=== PATIENT | female | born 1945 | race Caucasian/White ===

== ENCOUNTER → 2017-06-17 | Outpatient (CLI) | payer MEDICARE, MEDICAID | END | disposition home or self-care (01) | LOC: MAMMO 12:43 | DX: Z12.31 Encounter for screening mammogram for malignant neoplasm of breast (principal) ==

== ENCOUNTER 2018-04-28 16:39 | Inpatient (IN) | payer MEDICARE, MEDICAID ==
[~2018-04-28] VITALS: Ht 167.6 cm; Wt 82.2 kg
--- NOTE | ~2018-04-28 | PR ---
[place], [place] PROGRESS NOTE NAME: INCKY LUDWIG [facility] #: [id number] UNIT #: [id number] ROOM: 502 DOCTOR: TERESA MOREJONDONN BIRTHDATE: [birth year] DOS: 04/30/2018 HISTORY OF PRESENT ILLNESS: A 72-year-old with some mental compromise, has presented with cross abdominal pain and was found to have elevation of pancreatic enzymes. She cannot contribute much in detail about her problems. White blood cell was 9; however, H and H of 15 and 43, differential neutrophil was slightly elevated, lactic acid normal. INR 1.2. Chest x-ray did not show any acute pathology of concern. BUN and creatinine 40 and 1.9. Electrolytes, borderline hyponatremia, normochloremic; however, GOT and GPT is 59 and 161, lipase of an 800+. C-reactive protein was 23. BNP of 150. Urinalysis was 4+ bacterial positive. CT scan of the abdomen demonstrate bilateral atelectasis of the lung, liver, hepatic steatosis, mild in degree. No evidence of pleural or pericardial pathology effusion. The inflammatory change extends caudal to the retroperitoneum along the anterior renal space, left greater than right, kidney appears to be grossly within normal limits and summarize as most consistent with acute pancreatitis. These inflammatory changes extending to abdomen retroperitoneally. Hemoglobin A1c normal. Comprehensive metabolic panel again reassessed. Chemistry and liver function tests remained normal except lipase normalizes to 369, normal. Sonogram of the gallbladder, no gallbladder thickening or dilation. Marinelli sign is negative. Heterogeneous parenchyma of the liver, hepatic steatosis, is jumping back in multiple gallstones in the gallbladder has been noticed. Sonographic study, no pericholecystic fluid reported. Urine culture, no bacteria in 48 hours reported. Blood culture was no bacteria reported. MRI of the abdomen, cholelithiasis without gallbladder wall thickening, no biliary ductal dilation or choledocholithiasis reported, pancreatic pseudocyst of up to 3.9 cm reported, innumerable gallstones up to 2.1 cm reported. PAST MEDICAL HISTORY: Associated with seizure disorder, hypertension systemically, renal insufficiency, abnormal LFTs, tetracycline usage and pancreatitis. PAST SURGICAL HISTORY: None. SOCIAL HISTORY: Nonsmoker, nonalcohol consumer. FAMILY HISTORY: Noncontributory. ALLERGIES: TETRACYCLINE, which she is taking it in the form of Sumycin on 04/28/2018, but does to new of her medication for her unless she has been taking it longer than duration, I cannot verify and also she has been on primidone. HOME MEDICATIONS: Also has been lisinopril, Risperdal, Trileptal and meloxicam, which may make sense as far as her dyspepsia is concerned. REVIEW OF SYSTEMS: HEENT: Denies double vision, blurred vision. RESPIRATORY: Denies shortness of breath. CARDIOVASCULAR: Denies chest pain. DIGESTIVE SYSTEM: Admits cross abdominal pain. [place], [place] PROGRESS NOTE NAME: NICKY LUDWIG UNIT #: [id number] ROOM: 502 DOCTOR: DONN MOORE MD BIRTHDATE: [birth year] PHYSICAL EXAMINATION: GENERAL: Nondistressed patient. VITAL SIGNS: Stable. HEAD AND NECK: Normocephalic, nontraumatic. Mouth and buccal mucosa benign. NECK: Supple, no thyromegaly. LUNGS: No wheeze, no rhonchi. HEART: Normal sinus rhythm, no gallop, no murmur. ABDOMEN: Soft. No hepato-organomegaly. Bowel sounds present. No pulsatile mass. No rebound tenderness. EXTREMITIES: No cyanosis, no pedal edema. NEUROLOGIC: Alert and softly oriented, not to the details. IMPRESSION: Pancreatitis in the presence of a gallbladder full of stones and debris, one has to be concerned about choledocholithiasis that is not visualized on MRCP or has passed, due to the fact that the patient's lipase has normalized from acute pancreatitis, this patient needs a rather prompt attention regarding receiving a cholecystectomy if she is being discharged from the hospital today with a preorganization of a cholecystectomy to the consultation if possible, now, otherwise [facility]. Other adjunctive diagnosis: Seizure disorder. Other adjunctive diagnosis: Pancreatic pseudocyst. Other adjunctive diagnoses: Systemic hypertension, seizure disorder and as dictated in paragraph of past medical and surgical history. Thank you very much indeed for your kind referral. DONN MOORE MD CM:PNTRANS [id number] DONN MOORE MD 05/05/18 1106 interface
--- NOTE | ~2018-04-28 | EKG ---
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
[2018-04-28 16:39] VITALS: BP 111/75
[2018-04-28 17:17] LABS: BASO % 0.2 % (0.0-1.0); EOS % 0.2 % (1.0-4.0); HEMATOCRIT 43.6 % (37.0-47.0); HEMOGLOBIN 15.4 g/dl (12.0-16.0); LYMPH # 0.5 10*3/uL (1.3-4.4); LYMPH % 5.2 % (27.0-41.0); MEAN CELL VOLUME 86.2 fl (81.0-99.0); MEAN CORPUSCULAR HGB 30.4 pg (27.0-31.0); MEAN CORPUSCULAR HGB CONC 35.3 g/dl (33.0-37.0); MEAN PLATELET VOLUME 9.5 fl (9.6-12.3); MONO # 0.7 10*3/uL (0.1-1.0); MONO % 6.8 % (3.0-9.0); NEUT # 8.5 10*3/uL (2.3-7.9); NEUT % 87.4 % (47.0-73.0); PLATELET COUNT AUTOMATED 240 10*3/uL (130-400); RED BLOOD COUNT 5.06 10*6/uL (4.10-5.10); RED CELL DISTRI WIDTH 13.3 % (0-14.5); WHITE BLOOD COUNT 9.7 10*3/uL (4.8-10.8)
[2018-04-28 17:28] LABS: INTERNATIONAL NORM RATIO 1.2 (2.0-3.5)
[2018-04-28 17:32] LABS: ALBUMIN 3.3 gm/dl (3.1-4.5); ALKALINE PHOSPHATASE 76 U/L (45-117); BUN 40 mg/dl (7-24); CHLORIDE 98 mmol/L (98-107); CREATININE 1.93 mg/dL (0.55-1.02); LIPASE 827 U/L (73-393); POTASSIUM 3.9 mmol/L (3.5-5.1); SGOT/AST 59 IU/L (3-35); SGPT/ALT 161 U/L (12-78); SODIUM 130 mmol/L (136-145)
[2018-04-28 17:34] LABS: TROPONIN I < 0.015 ng/ml (<0.045)
[2018-04-28 17:42] VITALS: BP 107/71
[2018-04-28 18:11] LABS: BILIRUBIN NEGATIVE (NEGATIVE); BLOOD NEGATIVE (NEGATIVE); CLARITY CLOUDY (CLEAR); COLOR YELLOW (YELLOW); GLUCOSE NEGATIVE (NEGATIVE); KETONE TRACE (NEGATIVE); LEUKO ESTERASE NEGATIVE (NEGATIVE); NITRITE NEGATIVE (NEGATIVE); PH 5.5 (5.0-9.0); SPECIFIC GRAVITY 1.025 (1.005-1.030); UROBILINOGEN 0.2 E.U./dl (0.2-1.0)
[2018-04-28 18:20] LABS: BACTERIA 4+; EPITHELIAL CELLS TNTC; MUCOUS TRACE; RBC 0-2 rbc/hpf (0-2); WBC 16-20 wbc/hpf (0-5)
[2018-04-28 19:03] VITALS: BP 128/68
[2018-04-28 20:58] VITALS: BP 120/66
[2018-04-28 21:10] VITALS: BP 137/86
--- NOTE | 2018-04-28 21:10 | NUR ---
A 72, admitted to , under the services of ARMIN Delcid DO with a diagnosis of ARF, METABOLIC ENCEPHALOPATHY, DEHYDRATION. Chief complaint is CONFUSUION, LIGHTHEADEDNESS SINCE THURSDAY. Patient arrived via ambulatory from ER. Monitor applied. Initial assessment completed. Vital signs taken and recorded. ARMIN DELCID DO notified of admission to the unit. Orders received. See assessment for past medical history, medications and allergies. Patient and/or family oriented to unit. [facility] visitation policy reviewed. Clothing/patient valuable form completed. FROILAN CABRERA
[2018-04-28] MEDS ORDERED: MOBIC15 MG PO (21:24)
[2018-04-28] MEDS ORDERED: LISINOPRIL2.5 MG PO (21:24)
[2018-04-28] MEDS ORDERED: TRILEPTAL150 MG PO (21:25)
[2018-04-28] MEDS ORDERED: RISPERDAL0.25 MG PO (21:25)
--- NOTE | 2018-04-28 22:18 | NUR ---
AWARE OF CONSULT. NEW ORDER FOR CBC GIVEN AND TO CALL WITH RESULTS.
--- NOTE | 2018-04-28 22:56 | NUR ---
MED REC UPDATED VIA MED BOTTLES FROM HOME. MEDS IN PHARMACY.
[2018-04-29] VITALS: BP 149/65
--- NOTE | 2018-04-29 04:03 | NUR ---
24 HR chart check completed.
[2018-04-29 07:58] LABS: EOS % 0.2 % (1.0-4.0); HEMATOCRIT 42.3 % (37.0-47.0); HEMOGLOBIN 14.5 g/dl (12.0-16.0); LYMPH # 0.4 10*3/uL (1.3-4.4); LYMPH % 6.8 % (27.0-41.0); MEAN CELL VOLUME 89.2 fl (81.0-99.0); MEAN CORPUSCULAR HGB 30.6 pg (27.0-31.0); MEAN CORPUSCULAR HGB CONC 34.3 g/dl (33.0-37.0); MEAN PLATELET VOLUME 9.7 fl (9.6-12.3); MONO # 0.4 10*3/uL (0.1-1.0); MONO % 6.5 % (3.0-9.0); NEUT # 5.5 10*3/uL (2.3-7.9); NEUT % 86.3 % (47.0-73.0); PLATELET COUNT AUTOMATED 178 10*3/uL (130-400); RED BLOOD COUNT 4.74 10*6/uL (4.10-5.10); RED CELL DISTRI WIDTH 13.2 % (0-14.5); WHITE BLOOD COUNT 6.3 10*3/uL (4.8-10.8)
[2018-04-29 08:00] VITALS: BP 144/76
[2018-04-29 08:07] LABS: ACT PARTIAL THROMBO TIME 28.5 SECONDS (20.8-31.5); INTERNATIONAL NORM RATIO 1.1 (2.0-3.5)
--- NOTE | 2018-04-29 08:14 | NUR ---
PT RESTING IN BED. NO DISTRESS NOTED/ WILL MONITOR
[2018-04-29 08:23] LABS: ALBUMIN 2.9 gm/dl (3.1-4.5); CREATININE 1.24 mg/dL (0.55-1.02); FREE T4 1.18 ng/dl (0.76-1.46); PHOSPHOROUS 2.4 mg/dL (2.5-4.9); TOTAL PROTEIN 6.7 gm/dL (6.4-8.2)
[2018-04-29 08:28] LABS: THYROID STIM HORMONE (HS) 0.866 uIU/ml (0.358-4.75)
[2018-04-29 08:51] LABS: VITAMIN D, 25-HYDROXY 37.7 ng/mL (30-100)
--- NOTE | 2018-04-29 10:33 | NUR ---
[employer] in to talk to patient. Patient states lives at HOME with ALONE. There are NO steps in the home. Physician: Florencia ANGUIANO [facility] Home health services: PT HAS AIDS THROUGH [facility] Patient's level of ADLs: MODERATE ASSIST Patient has working utilities: YES DME: NONE Follow-up physician's appointment after d/c: WILL BE MADE BY HOSPITALIST NURSE DIRECTOR ON DISCHARGE Does patient want to access PORTAL?: NO Discharge plan PT STATES SHE LIVES AT HOME ALONE AND HAS AIDS THROUGH [facility]. DENIES ANY OTHER NEEDS ON DISCHARGE AT THIS TIME. WILL CONTINUE TO FOLLOW. PT STATES SHE WILL HAVE A RIDE HOME.. DAGOBERTO MORTON
[2018-04-29 12:00] VITALS: BP 142/75
[2018-04-29 16:00] VITALS: BP 149/70
[2018-04-29 20:00] VITALS: BP 136/50
--- NOTE | 2018-04-29 20:23 | NUR ---
24 HR chart check completed.
--- NOTE | 2018-04-29 21:00 | NUR ---
RESTING IN BED WITH NO DISTRESS NOTED. RESPIRATIONS EASY. LUNGS DIMINISHED, CLEAR. PULSE OX 98% RA. +1 BLE EDEMA. IV FLUIDS INFUSING PER ORDER. CALL LIGHT WITHIN REACH. NO VOICED COMPLAINTS. BED ALARM MAINTAINED FOR SAFETY
[2018-04-30] VITALS: BP 137/51; BP 96/46
--- NOTE | 2018-04-30 | NUR ---
SLEEPING. NO DISTRESS NOTED. RESPIRATIONS EASY. VSS. IV FLUIDS MAINTAINED. CALL LIGHT WITHIN REACH. BED ALARM MAINTAINED FOR SAFETY
--- NOTE | 2018-04-30 06:00 | NUR ---
RESTED THROUGHOUT NIGHT WITH NO DISTRESS NOTED. RESPIRATIONS EASY. IV FLUIDS MAINTAINED. CALL LIGHT WITHIN REACH. NO VOICED COMPLAINTS THIS SHIFT
[2018-04-30 06:47] LABS: ALBUMIN 2.3 gm/dl (3.1-4.5); ALKALINE PHOSPHATASE 79 U/L (45-117); CHLORIDE 104 mmol/L (98-107); CREATININE 0.82 mg/dL (0.55-1.02); LIPASE 127 U/L (73-393); PHOSPHOROUS 1.6 mg/dL (2.5-4.9); POTASSIUM 3.4 mmol/L (3.5-5.1); SGPT/ALT 111 U/L (12-78); SODIUM 135 mmol/L (136-145); TOTAL PROTEIN 5.8 gm/dL (6.4-8.2)
[2018-04-30 06:59] LABS: SGOT/AST 66 IU/L (3-35)
[2018-04-30 07:12] LABS: BUN 14 mg/dl (7-24)
[2018-04-30 08:00] VITALS: BP 139/61
[2018-04-30 08:08] LABS: BASO % 0.2 % (0.0-1.0); EOS % 0.6 % (1.0-4.0); HEMATOCRIT 36.4 % (37.0-47.0); LYMPH # 0.5 10*3/uL (1.3-4.4); LYMPH % 9.4 % (27.0-41.0); MEAN CELL VOLUME 88.8 fl (81.0-99.0); MEAN CORPUSCULAR HGB 30.2 pg (27.0-31.0); MEAN CORPUSCULAR HGB CONC 34.1 g/dl (33.0-37.0); MEAN PLATELET VOLUME 10.1 fl (9.6-12.3); MONO # 0.5 10*3/uL (0.1-1.0); MONO % 9.2 % (3.0-9.0); NEUT # 4.2 10*3/uL (2.3-7.9); NEUT % 80.4 % (47.0-73.0); PLATELET COUNT AUTOMATED 176 10*3/uL (130-400); RED CELL DISTRI WIDTH 13.1 % (0-14.5); WHITE BLOOD COUNT 5.2 10*3/uL (4.8-10.8)
--- NOTE | 2018-04-30 08:12 | NUR ---
PT RESTING IN BED. NO DISTRESS NOTED. WILL MONITOR
[2018-04-30 08:16] LABS: HEMOGLOBIN 12.4 g/dl (12.0-16.0)
[2018-04-30 12:00] VITALS: BP 169/74
[2018-04-30 16:00] VITALS: BP 150/73
--- NOTE | 2018-04-30 17:19 | NUR ---
PT RESTING IN BED. NO DISTRESS NOTED. NO VOICED C/O. DR MOORE HERE TO SEE PT
--- NOTE | 2018-04-30 19:30 | NUR ---
PT RESTING IN BED. RESP-EASY AND REGULAR. NO C/O AT THIS TIME. CALL LIGHT IN REACH.
[2018-04-30 20:00] VITALS: BP 138/62
--- NOTE | 2018-04-30 21:15 | NUR ---
TOLERATED ROUTINE MEDS WITH NO PROBLEM. NO C/O AT THIS TIME. CALL LIGHT IN REACH.
[2018-05-01] VITALS: BP 143/69
--- NOTE | 2018-05-01 | NUR ---
PT RESTING IN BED. NO C/O AT THIS TIME. CALL LIGHT IN REACH. SEE SHIFT ASSESSMENT.
--- NOTE | 2018-05-01 04:00 | NUR ---
SLEEPING IN BED. RESP-EASY AND REGULAR. CALL LIGHT IN REACH.
--- NOTE | 2018-05-01 06:00 | NUR ---
SLEEPING IN BED. RESP-EASY AND REGULAR. CALL LIGHT IN REACH.
[2018-05-01 07:56] LABS: ALBUMIN 2.3 gm/dl (3.1-4.5); BUN 8 mg/dl (7-24); CHLORIDE 105 mmol/L (98-107); CREATININE 0.93 mg/dL (0.55-1.02); LIPASE 79 U/L (73-393); PHOSPHOROUS 2.8 mg/dL (2.5-4.9); POTASSIUM 3.5 mmol/L (3.5-5.1); SGOT/AST 115 IU/L (3-35); SGPT/ALT 160 U/L (12-78); SODIUM 137 mmol/L (136-145)
[2018-05-01 07:58] LABS: ALKALINE PHOSPHATASE 105 U/L (45-117); TOTAL PROTEIN 5.8 gm/dL (6.4-8.2)
[2018-05-01 08:00] VITALS: BP 154/69
[2018-05-01] MEDS ORDERED: B12100 MC1 PO (12:21)
--- NOTE | 2018-05-01 12:50 | NUR ---
MESSAGE LEFT ON BROTHER'S VOICEMAIL REGARDING DISCHARGE PER PT REQUEST.
--- NOTE | 2018-05-01 13:25 | NUR ---
SPOKE WITH PATIENT'S BROTHER WHO STATED HE WOULD BE HERE IN 20 MINUTES TO PICK HER UP. [place]OCK DISCONTINUED. FOLLOW UP CARE DISCUSSED. DISCHARGE INSTRUCTIONS PROVIDED TO PATIENT.
--- NOTE | 2018-05-01 13:50 | NUR ---
PT DISCHARGED HOME AT THIS TIME VIA WHEELCHAIR TO PRIVATE CAR.
== END 2018-05-01 13:50 | disposition home or self-care (01) | DRG 438 ==
LOC: ED 16:39 → 5E 18:50 → EDHOLD 18:50 → 5E 19:53
PROVIDERS: Emergency Medicine; Family Medicine; Internal Medicine; Student in an Organized Health Care Education/Training Program; ADMIT Internal Medicine
DX: K85.91 Acute pancreatitis with uninfected necrosis, unspecified (principal); G93.41 Metabolic encephalopathy; N17.0 Acute kidney failure with tubular necrosis; E87.1 Hypo-osmolality and hyponatremia; J98.11 Atelectasis; E86.0 Dehydration; R73.9 Hyperglycemia, unspecified; R74.8 Abnormal levels of other serum enzymes; R82.71 Bacteriuria; G40.909 Epilepsy, unspecified, not intractable, without status epilepticus; I10 Essential (primary) hypertension; K76.0 Fatty (change of) liver, not elsewhere classified; K80.20 Calculus of gallbladder without cholecystitis without obstruction; Z79.899 Other long term (current) drug therapy; Z88.8 Allergy status to other drugs, medicaments and biological substances; Z88.1 Allergy status to other antibiotic agents

== ENCOUNTER → 2018-07-28 | Outpatient (CLI) | payer MEDICARE, MEDICAID ==
[~2018-07-28] MED LIST: B12100 MC1 PO; LISINOPRIL2.5 MG PO; MOBIC15 MG PO; RISPERDAL0.25 MG PO; TRILEPTAL150 MG PO
== END | disposition home or self-care (01) ==
LOC: MAMMO 13:00
DX: Z12.31 Encounter for screening mammogram for malignant neoplasm of breast (principal)

== ENCOUNTER 2019-01-14 12:32 | Inpatient (IN) | payer MEDICARE, MEDICAID ==
[~2019-01-14] VITALS: Ht 167.6 cm; Wt 88.0 kg
[2019-01-14 12:34] VITALS: BP 110/61
[2019-01-14 13:39] LABS: BASO % 0.4 % (0.0-1.0); EOS % 0.4 % (1.0-4.0); HEMATOCRIT 46.3 % (37.0-47.0); HEMOGLOBIN 15.4 g/dl (12.0-16.0); LYMPH # 0.8 10*3/uL (1.3-4.4); LYMPH % 11.4 % (27.0-41.0); MEAN CORPUSCULAR HGB 29.6 pg (27.0-31.0); MEAN CORPUSCULAR HGB CONC 33.3 g/dl (33.0-37.0); MEAN PLATELET VOLUME 9.5 fl (9.6-12.3); MONO # 0.5 10*3/uL (0.1-1.0); MONO % 6.3 % (3.0-9.0); NEUT # 5.8 10*3/uL (2.3-7.9); NEUT % 81.1 % (47.0-73.0); PLATELET COUNT AUTOMATED 205 10*3/uL (130-400); RED CELL DISTRI WIDTH 12.3 % (0-14.5); WHITE BLOOD COUNT 7.2 10*3/uL (4.8-10.8)
[2019-01-14 13:56] LABS: ALBUMIN 3.8 gm/dl (3.1-4.5); ALKALINE PHOSPHATASE 92 U/L (45-117); BUN 14 mg/dl (7-24); CHLORIDE 98 mmol/L (98-107); CREATININE 1.23 mg/dL (0.55-1.02); SGOT/AST 18 IU/L (3-35); SGPT/ALT 19 U/L (12-78); SODIUM 129 mmol/L (136-145); TOTAL PROTEIN 7.7 gm/dL (6.4-8.2); TROPONIN I < 0.015 ng/ml (<0.045)
[2019-01-14 14:05] LABS: ACT PARTIAL THROMBO TIME 27.8 SECONDS (20.0-32.1)
[2019-01-14 15:18] VITALS: BP 122/64
--- NOTE | 2019-01-14 15:18 | NUR ---
BLANKET PROVIDED AND IV TUBING REPOSITIONED AND LINE FLUSHED TO PROMOTE PROPER FLOW. DENIES ANY NEEDS. WILL MONITOR.
[2019-01-14 16:40] VITALS: BP 122/62
[2019-01-14] MEDS ORDERED: LISINOPRIL20 MG PO (17:15)
[2019-01-14 17:33] VITALS: BP 122/64
--- NOTE | 2019-01-14 17:50 | NUR ---
A 73, admitted to , under the services of MARIA EUGENIA Sterling DO with a diagnosis of SYNCOPAL EPISODE AT [facility]. Chief complaint is PASSED OUT. Patient arrived via stretcher from ER. Monitor applied. Initial assessment completed. Vital signs taken and recorded. MARIA EUGENIA STERLING DO notified of admission to the unit. Orders received. See assessment for past medical history, medications and allergies. Patient and/or family oriented to unit. [facility] visitation policy reviewed. Clothing/patient valuable form completed. YAZAN RAMIREZ
--- NOTE | 2019-01-14 18:29 | NUR ---
FLU SHOT GIVEN, ANKLE WRAPPED, IV FLUIDS STARTED
[2019-01-14 20:00] VITALS: BP 128/72
--- NOTE | 2019-01-14 20:00 | NUR ---
24 HOUR CHART CHECK COMPLETE.
[2019-01-15] VITALS: BP 106/50
[2019-01-15 07:13] LABS: BASO % 0.3 % (0.0-1.0); EOS # 0.1 10*3/uL (0.0-0.4); EOS % 1.7 % (1.0-4.0); HEMATOCRIT 41.1 % (37.0-47.0); HEMOGLOBIN 13.5 g/dl (12.0-16.0); LYMPH # 0.9 10*3/uL (1.3-4.4); LYMPH % 26.3 % (27.0-41.0); MEAN CELL VOLUME 90.3 fl (81.0-99.0); MEAN CORPUSCULAR HGB 29.7 pg (27.0-31.0); MEAN CORPUSCULAR HGB CONC 32.8 g/dl (33.0-37.0); MEAN PLATELET VOLUME 9.6 fl (9.6-12.3); MONO # 0.3 10*3/uL (0.1-1.0); MONO % 7.4 % (3.0-9.0); NEUT # 2.3 10*3/uL (2.3-7.9); NEUT % 64.3 % (47.0-73.0); PLATELET COUNT AUTOMATED 195 10*3/uL (130-400); RED BLOOD COUNT 4.55 10*6/uL (4.10-5.10); RED CELL DISTRI WIDTH 12.6 % (0-14.5); WHITE BLOOD COUNT 3.5 10*3/uL (4.8-10.8)
[2019-01-15 07:37] LABS: BUN 14 mg/dl (7-24); CHLORIDE 109 mmol/L (98-107); CHOLESTEROL 165 mg/dL (<200); CREATININE 0.91 mg/dL (0.55-1.02); PHOSPHOROUS 2.7 mg/dL (2.5-4.9); POTASSIUM 4.4 mmol/L (3.5-5.1); SGOT/AST 8 IU/L (3-35); SGPT/ALT 19 U/L (12-78); SODIUM 138 mmol/L (136-145); TOTAL PROTEIN 6.6 gm/dL (6.4-8.2); TRIGLYCERIDES 43 mg/dl (<150); VLDL CHOLESTEROL 9 mg/dL (6-40)
[2019-01-15 07:43] LABS: ALKALINE PHOSPHATASE 91 U/L (45-117); HDL CHOLESTEROL 81 mg/dl (40-60); LDL CHOLESTEROL 75 mg/dL (9-159)
[2019-01-15 07:59] LABS: VITAMIN D, 25-HYDROXY 27.7 ng/mL (30-100)
[2019-01-15 08:00] VITALS: BP 110/42
--- NOTE | 2019-01-15 08:34 | NUR ---
PT SITTING UP IN BED, EATING BREAKFAST. NO DISTRESS NOTED. WILL MONITOR
[2019-01-15 12:00] VITALS: BP 145/91
[2019-01-15 16:00] VITALS: BP 155/74
--- NOTE | 2019-01-15 19:16 | NUR ---
PRN TYLENOL ADMINISTERED PRESCRIBED FOR PT C/O RT ANKLE PAIN RATED A 10/10 ON THE PAIN SCALE. PT STATES IT WORSENS WHEN APPLYING PRESSURE. WILL CONTINUE TO MONITOR AND REASSESS. NO OTHER COMPLAINTS AT THIS TIME.
[2019-01-15 20:00] VITALS: BP 132/60
--- NOTE | 2019-01-15 20:00 | NUR ---
24 HOUR CHART CHECK COMPLETE.
--- NOTE | 2019-01-15 20:26 | NUR ---
PT ASLEEP AT THIS TIME. NO SIGNS OF DISCOMFORT OR DISTRESS NOTED. RESPIRATIONS EASY AND UNLABORED. WILL CONTINUE TO MONITOR.
[2019-01-16] VITALS: BP 143/57
[2019-01-16 06:51] LABS: ALBUMIN 2.9 gm/dl (3.1-4.5); ALKALINE PHOSPHATASE 78 U/L (45-117); BUN 11 mg/dl (7-24); CHLORIDE 108 mmol/L (98-107); CREATININE 0.88 mg/dL (0.55-1.02); SGOT/AST 8 IU/L (3-35); SGPT/ALT 17 U/L (12-78); SODIUM 137 mmol/L (136-145); TOTAL PROTEIN 6.3 gm/dL (6.4-8.2)
[2019-01-16 07:46] LABS: BASO % 0.4 % (0.0-1.0); EOS # 0.1 10*3/uL (0.0-0.4); EOS % 3.2 % (1.0-4.0); HEMATOCRIT 42.4 % (37.0-47.0); HEMOGLOBIN 14.2 g/dl (12.0-16.0); LYMPH # 0.9 10*3/uL (1.3-4.4); LYMPH % 31.7 % (27.0-41.0); MEAN CELL VOLUME 88.5 fl (81.0-99.0); MEAN CORPUSCULAR HGB 29.6 pg (27.0-31.0); MEAN CORPUSCULAR HGB CONC 33.5 g/dl (33.0-37.0); MEAN PLATELET VOLUME 9.7 fl (9.6-12.3); MONO # 0.2 10*3/uL (0.1-1.0); MONO % 7.6 % (3.0-9.0); NEUT # 1.6 10*3/uL (2.3-7.9); NEUT % 56.7 % (47.0-73.0); PLATELET COUNT AUTOMATED 185 10*3/uL (130-400); RED BLOOD COUNT 4.79 10*6/uL (4.10-5.10); RED CELL DISTRI WIDTH 12.4 % (0-14.5); WHITE BLOOD COUNT 2.8 10*3/uL (4.8-10.8)
[2019-01-16 08:00] VITALS: BP 154/75
--- NOTE | 2019-01-16 08:54 | NUR ---
PT RESTING IN BED. NO DISTRESS NOTED. WILL MONITOR
--- NOTE | 2019-01-16 11:30 | NUR ---
Discharge instructions reviewed with patient/family. Patient receptive and verbalizes understanding. Follow-up care arranged. Written instructions given to patient/family. ADRIAN SIMONS
--- NOTE | 2019-01-17 08:07 | NUR ---
Nursing screen received and patient discharged from hospital before Occupational Therapy screen completed. Yesi Malik OTR/l
== END 2019-01-16 11:30 | disposition home or self-care (01) | DRG 640 ==
LOC: ED 12:32 → EDHOLD 16:57 → 4E 17:26
PROVIDERS: Internal Medicine; Student in an Organized Health Care Education/Training Program; ADMIT Emergency Medicine
DX: E86.0 Dehydration (principal); N17.0 Acute kidney failure with tubular necrosis; E87.1 Hypo-osmolality and hyponatremia; I10 Essential (primary) hypertension; D72.810 Lymphocytopenia; E66.3 Overweight; R56.9 Unspecified convulsions; Z88.8 Allergy status to other drugs, medicaments and biological substances; Z79.899 Other long term (current) drug therapy; Z68.31 Body mass index [BMI] 31.0-31.9, adult

== ENCOUNTER → 2019-02-14 | Outpatient (CLI) | payer MEDICARE, MEDICAID ==
[~2019-02-14] MED LIST changes: +LISINOPRIL20 MG PO
== END | disposition home or self-care (01) ==
LOC: CARD 11:08
DX: I05.9 Rheumatic mitral valve disease, unspecified (principal); R55 Syncope and collapse

== ENCOUNTER → 2019-03-11 | Outpatient (CLI) | payer MEDICARE, MEDICAID | END | disposition home or self-care (01) | LOC: US 02-21 12:30 | DX: I65.23 Occlusion and stenosis of bilateral carotid arteries (principal) ==

== ENCOUNTER → 2019-10-17 | Outpatient (CLI) | payer MEDICARE, MEDICAID | END | disposition home or self-care (01) | LOC: MAMMO 10-10 09:00 → RAD 10-10 09:30 | DX: Z12.31 Encounter for screening mammogram for malignant neoplasm of breast (principal); M81.0 Age-related osteoporosis without current pathological fracture; Z78.0 Asymptomatic menopausal state ==

== ENCOUNTER → 2019-11-29 | Outpatient (CLI) | payer MEDICARE, MEDICAID | END | disposition home or self-care (01) | LOC: MAMMO 11-15 13:30 | PROVIDERS: ATTEND Nurse Practitioner Primary Care | DX: R92.2 Inconclusive mammogram (principal) ==

== ENCOUNTER 2021-06-19 19:58 | Emergency (ER) | payer MEDICARE, MEDICAID ==
[~2021-06-19] VITALS: Ht 160 cm; Wt 95.3 kg
[2021-06-19] MEDS ORDERED: RISPERDAL0.5 MG PO (20:09)
[2021-06-19] MEDS ORDERED: LAMICTAL25 MG PO (20:10)
[2021-06-19 20:25] LABS: BASO % 0.2 % (0.0-1.0); EOS % 0.7 % (1.0-4.0); HEMATOCRIT 41.3 % (37.0-47.0); LYMPH # 0.8 10*3/uL (1.3-4.4); LYMPH % 14.1 % (27.0-41.0); MEAN CELL VOLUME 84.8 fl (81.0-99.0); MEAN CORPUSCULAR HGB 28.5 pg (27.0-31.0); MEAN CORPUSCULAR HGB CONC 33.7 g/dl (33.0-37.0); MEAN PLATELET VOLUME 9.7 fl (9.6-12.3); MONO # 0.4 10*3/uL (0.1-1.0); NEUT # 4.4 10*3/uL (2.3-7.9); NEUT % 77.6 % (47.0-73.0); PLATELET COUNT AUTOMATED 205 10*3/uL (130-400); RED BLOOD COUNT 4.87 10*6/uL (4.10-5.10); RED CELL DISTRI WIDTH 13.2 % (0-14.5); WHITE BLOOD COUNT 5.6 10*3/uL (4.8-10.8)
[2021-06-19 20:36] LABS: ACT PARTIAL THROMBO TIME 29.2 SECONDS (20.0-32.1); INTERNATIONAL NORM RATIO 1.1 (2.0-3.5)
[2021-06-19 20:44] LABS: CREATININE 1.36 mg/dL (0.55-1.02); POTASSIUM 3.6 mmol/L (3.5-5.1)
== END 2021-06-19 22:55 | disposition home or self-care (01) ==
LOC: ED 19:58
PROVIDERS: Emergency Medicine
DX: R07.9 Chest pain, unspecified (principal); Z88.8 Allergy status to other drugs, medicaments and biological substances; Z79.899 Other long term (current) drug therapy

== ENCOUNTER → 2021-08-02 | Outpatient (CLI) | payer MEDICARE, MEDICAID ==
[~2021-08-02] MED LIST changes: +LAMICTAL25 MG PO; +RISPERDAL0.5 MG PO
== END | disposition home or self-care (01) ==
LOC: US 07-19 11:00
PROVIDERS: ATTEND Nurse Practitioner Primary Care
DX: K80.20 Calculus of gallbladder without cholecystitis without obstruction (principal); R74.8 Abnormal levels of other serum enzymes

== ENCOUNTER → 2021-11-21 | Day surgery (SDC) | payer MEDICARE, MEDICAID ==
[2021-11-18 14:03] VITALS: BP 122/74
[2021-11-18 14:49] LABS: BASO % 0.3 % (0.0-1.0); EOS % 0.5 % (1.0-4.0); HEMATOCRIT 47.3 % (37.0-47.0); LYMPH # 0.9 10*3/uL (1.3-4.4); LYMPH % 14.6 % (27.0-41.0); MEAN CELL VOLUME 86.8 fl (81.0-99.0); MEAN CORPUSCULAR HGB 28.6 pg (27.0-31.0); MEAN PLATELET VOLUME 9.4 fl (9.6-12.3); MONO # 0.3 10*3/uL (0.1-1.0); NEUT # 4.6 10*3/uL (2.3-7.9); NEUT % 79.4 % (47.0-73.0); PLATELET COUNT AUTOMATED 214 10*3/uL (130-400); RED BLOOD COUNT 5.45 10*6/uL (4.10-5.10); RED CELL DISTRI WIDTH 13.2 % (0-14.5); WHITE BLOOD COUNT 5.8 10*3/uL (4.8-10.8)
[2021-11-18 15:01] LABS: CREATININE 1.46 mg/dL (0.55-1.02); POTASSIUM 4.5 mmol/L (3.5-5.1)
[~2021-11-21] VITALS: Ht 157.4 cm; Wt 90.7 kg
[~2021-11-21] MED LIST changes: +COLACE100 MG PO; +ONDANSETRON HYDR4 M1 PO; +PERCOCET 5-3251 EACH PO
[2021-11-21 09:18] VITALS: BP 140/85
[2021-11-21 10:11] VITALS: BP 152/72
[2021-11-21 10:26] VITALS: BP 140/62
[2021-11-21 10:41] VITALS: BP 137/60
[2021-11-21 10:56] VITALS: BP 132/62
[2021-11-21 11:11] VITALS: BP 143/60
== END | disposition home or self-care (01) ==
LOC: SDC 09-12 13:15
PROVIDERS: ATTEND Surgery
DX: K80.10 Calculus of gallbladder with chronic cholecystitis without obstruction (principal); I10 Essential (primary) hypertension; G40.909 Epilepsy, unspecified, not intractable, without status epilepticus; Z79.899 Other long term (current) drug therapy

== ENCOUNTER → 2022-11-24 | Outpatient (CLI) | payer MEDICARE, MEDICAID | END | disposition home or self-care (01) | LOC: RAD 09:48 → MAMMO 10:30 | PROVIDERS: ATTEND Internal Medicine | DX: Z12.31 Encounter for screening mammogram for malignant neoplasm of breast (principal) ==

== ENCOUNTER → 2024-12-26 | Outpatient (CLI) | payer MEDICARE, MEDICAID | END | disposition home or self-care (01) | LOC: RAD 10:30 → MAMMO 11:00 | PROVIDERS: ATTEND Internal Medicine | DX: Z12.31 Encounter for screening mammogram for malignant neoplasm of breast (principal); R92.323 Mammographic fibroglandular density, bilateral breasts; R92.1 Mammographic calcification found on diagnostic imaging of breast; M81.0 Age-related osteoporosis without current pathological fracture; M85.89 Other specified disorders of bone density and structure, multiple sites ==